=== PATIENT | male | born 1990 ===

== ENCOUNTER 2018-02-02 07:15 | Day surgery (SDC) | payer MEDICAID ==
[2018-02-02 07:39] VITALS: BMI 24.7
[2018-02-02] MEDS ORDERED: Lactated Ringer's 500 ML IV ONE (07:42)
[2018-02-02] MEDS ORDERED: Midazolam 2 MG/2 ML VIAL ONE (08:26)
[2018-02-02] MEDS ORDERED: Propofol 10 mg/ml Inj (20 ML) ONE (08:26)
[2018-02-02 08:54] VITALS: BP 97/63; PULSE 71; TEMP 96.8; O2SAT 98
[2018-02-02 09:01] VITALS: RESP 19
== END 2018-02-02 14:23 | disposition home or self-care (01) ==
LOC: H.ENDO 07:15
PROVIDERS: ATTEND Internal Medicine Gastroenterology
DX: K52.9 Noninfective gastroenteritis and colitis, unspecified (principal); K31.89 Other diseases of stomach and duodenum; Z87.891 Personal history of nicotine dependence
CPT/HCPCS: 43239; 88305; J2001; J2250; J2704; J7120